=== PATIENT | female | born 1985 | race Two or more races ===

== ENCOUNTER 2022-09-12 13:38 | Emergency (ER) | payer MEDICAID ==
[~2022-09-12] VITALS: Ht 157.5 cm; Wt 68.1 kg
[2022-09-12 16:23] VITALS: BP 118/81
[2022-09-12] MEDS ORDERED: IBUP800T26 PO (17:25)
[2022-09-12] MEDS ORDERED: ACET-1158 PO (17:25)
== END 2022-09-12 17:31 | disposition home or self-care (01) ==
LOC: EDBD 13:38 → ER 13:38
DX: S00.83XA Contusion of other part of head, initial encounter (principal); T19.2XXA Foreign body in vulva and vagina, initial encounter; Z88.1 Allergy status to other antibiotic agents; Z88.0 Allergy status to penicillin; V49.9XXA Car occupant (driver) (passenger) injured in unspecified traffic accident, initial encounter; Y93.89 Activity, other specified; Y92.89 Other specified places as the place of occurrence of the external cause; Y99.8 Other external cause status

== ENCOUNTER 2024-05-09 05:44 | Emergency (ER) | payer MEDICAID ==
[~2024-05-09] VITALS: Ht 165.1 cm; Wt 77.3 kg
[~2024-05-09 05:44] MED LIST: ACET500T58 PO; IBUP-1455 PO
[2024-05-09 08:00] VITALS: PULSE 89; RESP 13; O2SAT 100
[2024-05-09] MEDS: ACYCLOVIR SOD 50MG/ML 800 MG in SODIUM CHL 0.9% 250 ML IV ONE (08:00)
[2024-05-09] MEDS: HYDROmorphone HCL 2 MG/ML VL/or syr IV ONE (08:27)
[2024-05-09] MEDS: SODIUM CHLORIDE 0.9% 1,000 ML IV ONE (08:27)
[2024-05-09] MEDS: GABAPENTIN 300 MG CAP PO ONE (08:29)
[2024-05-09] MEDS: SODIUM CHLORIDE 0.9% 1,000 ML IVB ONE (08:29)
[2024-05-09] MEDS: ONDANSETRON HCL 4 MG/2 ML VIAL ONE (08:30)
[2024-05-09 08:46] LABS: Basophils # (auto) 0.1 10 ^3/uL (0-0.2); Eosinophils # (auto) 0.1 10 ^3/uL (0-0.8); Eosinophils % (auto) 1.3 % (0.0-7.0); Monocytes # (auto) 0.8 10 ^3/uL (0-1.3); White Blood Cell 9.1 10^3/uL (4.4-10.8)
[2024-05-09] MEDS: ONDANSETRON HCL 4 MG/2 ML VIAL IV ONE (08:47)
[2024-05-09 08:48] LABS: Basophils % (auto) 0.9 % (0.0-2.0); Hematocrit 35.1 % (36.0-46.0); Hemoglobin 11.8 g/dL (12.2-16.2); Lymphocytes # (auto) 2.1 10 ^3/uL (0.4-5.4); Lymphocytes % (auto) 23.4 % (10.0-50.0); Mean Corpuscular Hemoglobin 26.2 pg (28.0-32.0); Mean Corpuscular Hgb Conc. 33.5 g/dL (32.0-36.0); Mean Corpuscular Volume 78.3 fL (80.0-100.0); Monocytes % (auto) 8.5 % (0.0-12.0); Neutrophils % (auto) 65.9 % (37.0-80.0); Nucleated Red Blood Cells % 0.1 %; Red Blood Cells 4.48 10^6/uL (4.0-5.20); Red Cell Distribution Width 16.1 % (11.8-14.3)
[2024-05-09 09:04] LABS: Alanine Aminotransferase 13 U/L (7-40); Alkaline Phosphatase 65 U/L (46-116); Anion Gap 9 (5-15); Aspartate Aminotransferase 12 U/L (13-40); BUN/Creatinine Ratio 15.2 (10.0-20.0); Blood Urea Nitrogen 10 mg/dL (9-23); Calcium 8.7 mg/dL (8.7-10.4); Carbon Dioxide 21 mmol/L (20-30); Chloride 111 mmol/L (98-107); Glucose 88 mg/dL (74-106); Magnesium 1.9 mg/dL (1.6-2.6); Potassium 3.6 mmol/L (3.5-5.1); Sodium 141 mmol/L (136-145)
[2024-05-09 09:05] LABS: Bilirubin, Total 0.4 mg/dL (0.2-1.0); Total Protein 6.6 g/dL (5.7-8.2)
[2024-05-09 09:13] VITALS: BP 121/83; PULSE 82; RESP 14
[2024-05-09] MEDS ORDERED: ACYC400T16 PO (12:06)
[2024-05-09] MEDS ORDERED: GABA-1250 PO (12:06)
[2024-05-09] MEDS ORDERED: HYDR-4902 PO (12:06)
== END 2024-05-09 12:42 | disposition home or self-care (01) ==
LOC: EDBD 05:44 → ER 05:44
DX: B02.9 Zoster without complications (principal); R10.2 Pelvic and perineal pain; M79.10 Myalgia, unspecified site; Z87.442 Personal history of urinary calculi; Z98.890 Other specified postprocedural states; Z88.1 Allergy status to other antibiotic agents; Z88.0 Allergy status to penicillin; Z79.899 Other long term (current) drug therapy
CPT/HCPCS: 36415; 71045; 80053; 83735; 84702; 85025; 96365; 96375; 99285; J0133; J1170; J2405; J7050